=== PATIENT | female | born 1955 | race Hispanic/Latino ===

== ENCOUNTER 2017-05-16 07:45 | Day surgery (SDC) | payer BC ==
[2017-05-16] MEDS ORDERED: HURRICAINE ONE 20% TOPICAL SPRAY MM NR (09:00)
[2017-05-16] MEDS ORDERED: NACL 0.9% 500 ML 500 ML IV SCH (09:00)
[2017-05-16] MEDS ORDERED: VERSED IV ONE (09:00)
[2017-05-16] MEDS ORDERED: SUBLIMAZE IV ONE (09:00)
--- NOTE | 2017-05-16 11:02 | Short Stay Summary ---
Short Stay Documentation Date of service: 05/16/17 - History H&P: obtained from office - Allergies and Medications Current Medications: Allergies Latex, Natural Rubber Allergy (Severe, Verified 10/19/15 06:35) Itching Sulfa (Sulfonamide Antibiotics) Allergy (Severe, Verified 10/19/15 06:35) FELT SEVERELY ILL Home Medications Medication Instructions Recorded Confirmed Last Taken Type Albuterol Sulfate [Proair Hfa] 2 puff IH PRN PRN 10/19/15 05/16/17 2 Months Ago History Aspirin EC [Aspirin Enteric Coated 325 mg PO PRN PRN 10/19/15 05/16/17 10/19/15 04:30 History TAB] FLUoxetine [PROzac] 20 mg PO QDAY 10/19/15 05/16/17 05/15/17 History Fluticasone (Nf) [Flovent 220 2 puff IH QDAY 10/19/15 05/16/17 05/16/17 History MCG/PUFF HFA] Loratadine [Claritin] 10 mg PO BID 10/19/15 05/16/17 05/15/17 History Calcium Carbonate [Calcium] 500 mg PO 05/16/17 05/15/17 History Doxycycline [Vibramycin CAP] 100 mg PO QDAY 05/16/17 05/16/17 05/15/17 History Multivit with Calcium,Iron,Min 1 tab PO QDAY 05/16/17 05/16/17 05/15/17 History Vitamin E Acetate [Vitamin E] 2,000 unit PO 05/16/17 05/15/17 History Active Medications Benzocaine (Hurricaine One 20% Topical [place]) 3 spray MM PREOP NR Stop: 05/16/17 15:00 Last Admin: 05/16/17 10:00 Dose: 3 spray Sodium Chloride (Nacl 0.9% 500 Ml) 500 mls @ 50 mls/hr IV DIRECT KAITLIN Last Admin: 05/16/17 08:36 Dose: 50 mls/hr - Physical exam General appearance: no acute distress Integumentary: no rash HEENT: Atraumatic Lungs: Clear to auscultation Breasts: deferred Heart: Regular rate Gastrointestinal: normal Female Genitourinary: deferred Rectal Exam: deferred Extremities: no ischemia Neurological: Normal gait - Brief post op/procedure progress note Date of procedure: 05/16/17 Pre-op diagnosis: Aortic stenosis Post-op diagnosis: same Procedure: TERA Anesthesia: MAC Findings: See report Surgeon: MELBA DREW Estimated blood loss: none Pathology: none Condition: stable - Hospital course Hospital course: uneventful - Disposition Condition at discharge: Good Disposition: DC-01 TO HOME OR SELFCARE Short Stay Discharge Plan Activity: advance as tolerated Weight Bearing Status: Weight Bear as Tolerated Diet: low fat, low cholesterol, low salt Follow up with: EMILEE JNOAS MD [Primary Care Provider] - 7 Days
[2017-05-16 12:38] VITALS: BP 115/68
== END 2017-05-16 13:30 | disposition home or self-care (01) ==
LOC: CATHLABREC 07:45 → EDSTATUS 08:30 → CATHLABREC 13:30
PROVIDERS: ATTEND Internal Medicine
DX: I35.0 Nonrheumatic aortic (valve) stenosis (principal); I25.3 Aneurysm of heart; I34.0 Nonrheumatic mitral (valve) insufficiency; I36.1 Nonrheumatic tricuspid (valve) insufficiency; M19.90 Unspecified osteoarthritis, unspecified site; J45.909 Unspecified asthma, uncomplicated; Z88.2 Allergy status to sulfonamides; Z91.040 Latex allergy status; Z79.82 Long term (current) use of aspirin; Z79.899 Other long term (current) drug therapy; Z82.49 Family history of ischemic heart disease and other diseases of the circulatory system; Z98.890 Other specified postprocedural states
CPT/HCPCS: 93312; 93320; 93325; J2250; J3010; J7040

== ENCOUNTER 2017-06-04 08:22 | Outpatient (CLI) | payer BC ==
--- NOTE | 2017-06-04 15:53 | Mammography Report ---
BILATERAL DIGITAL SCREENING MAMMOGRAM with CAD : 06/04/17 08:22:00 CLINICAL: Routine screening. COMPARISON:03/27/16 FINDINGS: The breasts are heterogeneously dense, which may obscure small masses. No mass, architectural distortion or suspicious calcifications. IMPRESSION: No mammographic evidence of malignancy. BI-RADS CATEGORY: 2 -- Benign RECOMMENDATION: Routine mammographic screening in one year. COMMENT: Patient follow-up letters are generated by our [employer] application.
== END 2017-06-04 08:23 | disposition home or self-care (01) ==
LOC: SPVWC 08:22
PROVIDERS: ATTEND Internal Medicine
DX: Z12.31 Encounter for screening mammogram for malignant neoplasm of breast (principal)
CPT/HCPCS: 77067; G0202

== ENCOUNTER 2017-08-05 06:29 | Day surgery (SDC) | payer BC ==
[2017-08-05] MEDS ORDERED: NACL 0.9% 500 ML 500 ML IV SCH (07:00)
[2017-08-05 07:29] LABS: Basophils # (Auto) 0.1 K/mm3 (0.0-0.1); Basophils % (Auto) 0.9 % (0.0-1.8); Eosinophils # (Auto) 0.4 K/mm3 (0.0-0.4); Eosinophils % (Auto) 5.8 % (0.0-4.3); Hematocrit 41.6 % (30.3-42.9); Hemoglobin 14.3 gm/dl (10.1-14.3); Lymphocytes # (Auto) 3.1 K/mm3 (1.2-5.4); Lymphocytes % (Auto) 41.5 % (13.4-35.0); Mean Corpuscular HGB Conc 34 % (30-34); Mean Corpuscular Hemoglobin 31 pg (28-32); Mean Corpuscular Volume 91 fl (79-97); Monocytes # (Auto) 0.6 K/mm3 (0.0-0.8); Monocytes % (Auto) 8.6 % (0.0-7.3); Platelet Count 272 K/mm3 (140-440); Red Blood Count 4.59 M/mm3 (3.65-5.03); Red Cell Distribution Width 13.2 % (13.2-15.2)
[2017-08-05 07:41] LABS: BUN/Creatinine Ratio 17; Blood Urea Nitrogen 12 mg/dL (7-17); Calcium 8.7 mg/dL (8.4-10.2); Hemolysis Index 2
[2017-08-05 07:44] LABS: INR 0.94 (0.87-1.13)
[2017-08-05] MEDS ORDERED: HEPARIN/NS 5000 UNIT/500ML(CATH LAB) 1,000 ML IR ONE (08:47)
[2017-08-05] MEDS ORDERED: XYLOCAINE 2% INFILTRATI ONE ×2 (08:47→09:01)
[2017-08-05] MEDS ORDERED: VERSED ONE (08:48)
[2017-08-05] MEDS ORDERED: SUBLIMAZE ONE (08:49)
[2017-08-05] MEDS ORDERED: BENADRYL ONE (09:00)
--- NOTE | 2017-08-05 10:12 | Discharge Summary ---
Short Stay Discharge Plan Activity: advance as tolerated Diet: low fat, low cholesterol, low salt Wound: keep clean and dry Special Instructions: no heavy lifting (3 days) Follow up with: EMILEE JONAS MD [Primary Care Provider] - 7 Days SHARON LARA MD [Staff Physician] - 7 Days
--- NOTE | 2017-08-05 10:23 | Cardiac Catherization Report ---
CARDIAC CATHETERIZATION REPORT REASON FOR PROCEDURE: The patient is a 61-year-old woman with progressive aortic valve stenosis. She was recommended for right and left heart catheterization for further assessment of lyxtgzbh-[id number]-wzfhdb aortic stenosis. PROCEDURES PERFORMED: 1. Right heart catheterization. 2. Left heart catheterization. 3. Selective left and right coronary angiography. 4. Left ventricular angiography. DESCRIPTION OF PROCEDURE: The patient was prepped and draped in a sterile fashion after informed consent. Right femoral artery and vein were both entered using the Seldinger technique. A 6-Welsh sheath was placed in the artery and an 8 Welsh sheath in the vein. Alicia-Danii catheterization was performed using a Alicia-Danii catheter, which was advanced to the pulmonary artery position. Cardiac output was then measured using the thermodilution method. A dual lumen pigtail catheter was advanced across the stenotic aortic valve. Simultaneous transaortic pressure gradient was then recorded. Following this, simultaneous right and left heart filling pressures were measured. The Alicia-Danii catheter was then withdrawn and right heart pressures recorded on pullback. Left ventricular angiography was then performed using the pigtail catheter. Following that, #4 right and left Ramesh catheters were used for selective left and right coronary angiography. The catheters were then removed, sheaths removed, arterial puncture was sealed using an Angio-Seal device, and the venous puncture was sealed using digital compression. The patient was returned to the postprocedure unit in stable condition. There were no complications. FINDINGS: HEMODYNAMICS: The mean right atrial pressure was 15. Right ventricular pressure 40/18. Pulmonary artery pressure 38/20. The mean pulmonary artery wedge pressure was 20. Left ventricular end diastolic pressure was 25-28. Cardiac output was 5.24 liters per minute. AORTIC STENOSIS: The left ventricular systolic pressure was 162. The simultaneous ascending aortic systolic pressure was 131. The [id number] transaortic gradient was 31 mmHg. The mean gradient was 29 mmHg. Using the Gorlin equation, the calculated aortic valve area was 0.9 cm2. LEFT VENTRICULAR ANGIOGRAPHY: Left ventricular chamber size and systolic function were within normal limits. Left ventricular ejection fraction 60-65%. CORONARY ANGIOGRAPHY: Left main coronary artery was angiographically normal. There was mild ostial narrowing of the left anterior descending artery, otherwise this vessel and its diagonal branches were free of significant disease. The circumflex artery and its obtuse marginal branches were angiographically normal. The right coronary artery was dominant. This vessel contained mild luminal irregularities in its proximal segment, otherwise free of significant disease. CONCLUSION: 1. Nhzilzup-jp-itadar aortic stenosis, with mean transaortic gradient of 29 mmHg, and aortic valve area of 0.9 cm2. 2. Mild pulmonary hypertension. 3. No significant coronary artery disease, essentially angiographically near normal coronary arteries. 4. Normal left ventricular systolic function, ejection fraction 60-65%. RECOMMENDATION: The patient will be referred for CT surgery consultation. Based on clinical and symptomatic factors as well as evidence of marked acceleration of severity of the aortic stenosis within a short period of time, the patient will be considered for aortic valve replacement. [facility]# [id number] CHOLO/KYLE
[2017-08-05] MEDS ORDERED: NACL 0.9% 1000 ML 1,000 ML IV SCH (11:00)
[2017-08-05 14:44] VITALS: BP 111/58
== END 2017-08-05 14:40 | disposition home or self-care (01) ==
LOC: CATHLABREC 06:29
PROVIDERS: ATTEND Internal Medicine Cardiovascular Disease
DX: I35.0 Nonrheumatic aortic (valve) stenosis (principal); M19.90 Unspecified osteoarthritis, unspecified site; Z79.01 Long term (current) use of anticoagulants; Z79.82 Long term (current) use of aspirin; Z79.899 Other long term (current) drug therapy; Z98.890 Other specified postprocedural states
CPT/HCPCS: 36415; 80048; 85025; 85610; 85730; 93005; 93010; 93460; 99156; 99157; C1751; C1760; C1769; C1894; J1200; J1644; J2250; J3010; J7040; Q9967